=== PATIENT | female | born 1990 | race Two or more races ===

== ENCOUNTER 2022-10-21 11:32 | Emergency (ER) | payer MEDICAID, OTHER ==
[~2022-10-21] VITALS: Ht 162.6 cm; Wt 12.0 kg
[2022-10-21 12:49] VITALS: BP 140/70
[2022-10-21] MEDS ORDERED: NAPR-746 PO (14:05)
== END 2022-10-21 14:17 | disposition home or self-care (01) ==
LOC: ER 11:32
DX: S60.221A Contusion of right hand, initial encounter (principal); Z90.49 Acquired absence of other specified parts of digestive tract; Z98.890 Other specified postprocedural states; Z79.899 Other long term (current) drug therapy; W22.8XXA Striking against or struck by other objects, initial encounter; Y93.89 Activity, other specified; Y92.89 Other specified places as the place of occurrence of the external cause; Y99.8 Other external cause status
CPT/HCPCS: 73130